=== PATIENT | female | born 1950 | race Caucasian/White ===

== ENCOUNTER → 2020-01-04 | Emergency (ER) | payer MEDICARE, OTHER ==
[~2020-01-04] VITALS: Ht 160 cm; Wt 77.1 kg
[~2020-01-04] MED LIST: HYDROcodone-ACET 5/325MG TAB PO ONE; ONDANSETRON HCL 4 MG/2 ML VIAL IV ONE
[2020-01-04 23:42] VITALS: BP 139/67
== END | disposition home or self-care (01) ==
LOC: EDUNIT# 18:23 → EDBD 18:32 → ER 18:35
DX: S42.201A Unspecified fracture of upper end of right humerus, initial encounter for closed fracture (principal); E11.9 Type 2 diabetes mellitus without complications; I10 Essential (primary) hypertension; M25.562 Pain in left knee; Z86.73 Personal history of transient ischemic attack (TIA), and cerebral infarction without residual deficits; W01.0XXA Fall on same level from slipping, tripping and stumbling without subsequent striking against object, initial encounter; Y92.89 Other specified places as the place of occurrence of the external cause; Y93.89 Activity, other specified; Y99.8 Other external cause status
CPT/HCPCS: 73030; 73060; 73090; 73562; 96374